=== PATIENT | female | born 1975 | race Hispanic/Latino ===

== ENCOUNTER 2021-07-18 06:25 | Day surgery (SDC) | payer OTHER ==
[2021-07-11 14:12] LABS: BASOPHILS % (AUTO) 0.3 % (0.0-5.0); HEMATOCRIT 38.7 % (36-48); LYMPHOCYTES % (AUTO) 23.3 % (21.0-51.0); MEAN CORPUSCULAR HEMOGLOBIN 28.9 pg (27.0-33.0); MEAN CORPUSCULAR HGB CONC 32.6 g/dL (32.0-36.0); MEAN CORPUSCULAR VOLUME 88.8 fL (79-99); NEUTROPHILS % (AUTO) 69.1 % (40.0-77.0); PLATELET COUNT (AUTO) 268 K/uL (130-400); RED BLOOD CELL COUNT(AUTO) 4.36 MIL/uL (4.00-5.50); RED CELL DISTRIBUTION WIDTH 14.2 % (11.0-15.5); WHITE BLOOD COUNT (AUTO) 7.8 K/uL (4.8-10.8)
[2021-07-18] VITALS (23 sets, daily range): BP systolic 106–133; BP diastolic 43–91
[~2021-07-18] VITALS: Ht 165.1 cm; Wt 80.5 kg
[2021-07-18] MEDS: CEFAZOLIN SODIUM 1 GM VIAL IVP SCH ×2 (06:00→08:30)
[~2021-07-18 06:25] MED LIST: ACETAMINOPHEN 500 MG TABLET PO SCH; CELECOXIB 200 MG CAP PO SCH; METRONIDAZOLE 500MG/100ML BAG 100 ML IVPB SCH
[2021-07-18] MEDS ORDERED: PHENAZOPYRIDINE HCL 200 MG TABLET ONE (06:48)
[2021-07-18] MEDS ORDERED: LACTATED RINGERS 1000ML 1,000 ML IV ONE (06:48)
[2021-07-18] MEDS ORDERED: LIDOCAINE 1%-EPI 1:100,000 20 ML VIAL IJ ONE (07:52)
[2021-07-18] MEDS ORDERED: BUPIVACAINE LIPOSOME/PF 266 MG/20 ML ML IV SCH (08:00)
[2021-07-18] MEDS ORDERED: DEXAMETHASONE SOD PHOSPHATE 10MG/ML 1ML VIAL ONE (08:08)
[2021-07-18] MEDS ORDERED: GLYCOPYRROLATE 1 MG/5 ML SYRINGE ONE (08:08)
[2021-07-18] MEDS ORDERED: PROPOFOL 10 MG/ML 20ML VIAL IV ONE (08:08)
[2021-07-18] MEDS ORDERED: LIDOCAINE PF 100MG/5ML (2%) SYRINGE 5ML ONE (08:08)
[2021-07-18] MEDS ORDERED: NEOSTIGMINE 5MG/5ML SYR IV ONE (08:08)
[2021-07-18] MEDS ORDERED: SUCCINYLCHOLINE 200MG/10ML SYR ONE (08:08)
[2021-07-18] MEDS ORDERED: ONDANSETRON 4MG INJ ONE ×2 (08:08→14:49)
[2021-07-18] MEDS ORDERED: ROCURONIUM 10MG/1ML SYR 10 MG/ML ML ONE ×2 (08:09→09:37)
[2021-07-18] MEDS ORDERED: MIDAZOLAM HCL 1 MG/ML 2ML VIAL ONE (08:09)
[2021-07-18] MEDS ORDERED: FENTANYL CITRATE PF 50 MCG/1 ML 5ML AMP IV ONE (08:20)
[2021-07-18] MEDS ORDERED: PHENAZOPYRIDINE HCL 200 MG TABLET PO SCH (09:00)
[2021-07-18] MEDS ORDERED: EPHEDRINE SULFATE 50 MG/ML AMPULE ONE (10:58)
[2021-07-18] MEDS ORDERED: KETOROLAC 30MG VIAL (30MG/ML) ONE (11:46)
[2021-07-18] MEDS ORDERED: MEPERIDINE-PF 25 MG/ML SYG ONE (11:47)
[2021-07-18] MEDS ORDERED: IPRATROPIUM/ALBUTEROL SULFATE 3 ML SOLUTION IH ONE (12:28)
[2021-07-18 14:53] LABS: HEMATOCRIT 36.9 % (36-48)
== END 2021-07-18 17:45 | disposition home or self-care (01) ==
LOC: DAH 06:25
PROVIDERS: ATTEND Obstetrics & Gynecology
DX: N93.9 Abnormal uterine and vaginal bleeding, unspecified (principal); N39.3 Stress incontinence (female) (male); Z20.822 Contact with and (suspected) exposure to COVID-19; N72 Inflammatory disease of cervix uteri; N88.8 Other specified noninflammatory disorders of cervix uteri; N84.0 Polyp of corpus uteri; D25.9 Leiomyoma of uterus, unspecified; D27.0 Benign neoplasm of right ovary; N83.11 Corpus luteum cyst of right ovary; N83.8 Other noninflammatory disorders of ovary, fallopian tube and broad ligament; N80.0 Endometriosis of uterus; K66.0 Peritoneal adhesions (postprocedural) (postinfection); Z82.49 Family history of ischemic heart disease and other diseases of the circulatory system; Z83.3 Family history of diabetes mellitus
CPT/HCPCS: 57288; 58571; S2900; 36415; 84703; 85014; 85018; 85025; 86850; 86900; 86901; 87635; 94640; A4344; A4606; C9290; C9803; J0330; J0690; J1100; J1885; J2001; J2175; J2250; J2405; J2704; J2710; J3010; J3490; J7030; J7120